=== PATIENT | female | born 1980 | race Caucasian/White ===

== ENCOUNTER 2023-12-20 18:53 | Emergency (ER) | payer OTHER, SELFPAY ==
[2023-12-20] VITALS (18 sets, daily range): BP systolic 122–170; BP diastolic 72–109; PULSE 55–97; TEMP 36.9; O2SAT 97–100; BMI 44.0
--- NOTE | 2023-12-20 19:36 | ECG_ITS ---
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
--- NOTE | 2023-12-20 19:56 | ED_ITS ---
HPI - Arrhythmia/Palpitations General Chief Complaint: Arrhythmia/Palpitations Stated Complaint: palpitations Time Seen by Provider: 12/20/23 19:50 Source: patient Mode of arrival: walk-in History of Present Illness HPI narrative: past history of RA. Takes Enbrel injections weekly. Presents complaining of palpitations over the past few days. Usually when she is laying down and during the night. Does well during the day. Asymptomatic now but wanted to come in and get checked out. No chest pain. States mild indigestion. No history of GERD. States she did have GI upset in the past when she took hydroxychloroquine. It was d/conchita after she started Enbrel. Related Data Allergies Allergy/AdvReac Type Severity Reaction Status Date / Time No Known Drug Allergies Allergy Verified 12/20/23 19:04 Review of Systems ROS Status of ROS 10 or more systems reviewed and unremark able except as noted in history and below Exam Constitutional Vital Signs, click to edit/add: Last Vital Signs Temp 98.4 F 12/20/23 18:59 Pulse 67 12/20/23 20:10 Resp 12 12/20/23 19:33 BP 134/83 12/20/23 20:06 Pulse Ox 98 12/20/23 20:10 O2 Del Method Room Air 12/20/23 18:59 Common normals: no apparent distress, average body habitus, oriented x3, no limitations, healthy appearing, alert and well nourished [facility] Common normals: normocephalic, head/scalp atraumatic and hearing grossly normal bilaterally Eye Common normals: PERRL, EOMs intact bilaterally and conjunctivae normal Respiratory Common normals: normal respiratory effort, no retractions, no use of accessory m uscles and clear to auscultation bilaterally Cardio Common normals: regular rate, regular rhythm, S1 normal heart sound and S2 normal heart sound GI Common normals: Normal to inspection, nondistended, normoactive bowel sounds present, soft to palpation and non-tender Extremity Common normals: normal to inspection and full ROM Neuro Common normals: oriented x3, CN's II-XII intact bilaterally, moves all extremities and no focal motor deficits Psych Appearance: grossly normal Course Vital Signs Vital signs: Vital Signs Temperature 98.4 F 12/20/23 18:59 Pulse Rate 78 08/03/24 18:59 Respiratory Rate 18 12/20/23 18:59 Blood Pressure 160/102 H 12/20/23 18:59 Pulse Oximetry 98 12/20/23 18:59 Oxygen Delivery Method Room Air 12/20/23 18:59 Temperature 98.4 F 12/20/23 18:59 Pulse Rate 67 12/20/23 20:10 Respiratory Rate 12 12/20/23 19:33 Blood Pressure 134/83 12/20/23 20:06 Pulse Oximetry 98 12/20/23 20:10 Oxygen Delivery Method Room Air 12/20/23 18:59 MDM - Arrhythmia/Palpitations MDM Narrative Medical decision making narrative: patient presents complaining of palpitations at night for the past 3 days. No symptoms during the day. Arrives here asymptomatic but wanted to get checked . Troponin and D-dimer neg. Cxray without acute findings. EKG with low voltage. ? old ant. wall scar. No acute findings. Monitor during time in the department without arrhythmia. Patient discharged and advised to follow up with her doctor . Recommend out patient monitor as part of her workup Lab Data Labs: Lab Results 12/20/23 Range/Units 20:03 WBC 12.1 H (4.0-11.0) 10^3/uL RBC 4.43 (4.20-5.40) 10^6/uL Hgb 14.3 (12.0-16.0) g/dL Hct 41.4 (36.0-48.0) % MCV 93.5 (81.0-99.0) fL MCH 32.3 (26.7-34.0) pg MCHC 34.5 (29.9-35.2) g/dL RDW 12.0 (11.0-15.0) % Plt Count 382 (150-450) 10^3/uL MPV 9.8 (9.5-13.5) fL Neut % (Auto) 73.2 (43.0-75.0) % Lymph % (Auto) 19.5 L (20.5-60.0) % [place] % (Auto) 5.4 (1.7-12.0) % Eos % (Auto) 0.7 L (0.9-7.0) % Baso % (Auto) 0.7 (0.2-2.0) % Neut # (Auto) 8.9 H (1.4-6.5) 10^3/uL Lymph # (Auto) 2.4 (1.2-3.8) 10^3/uL [place] # (Auto) 0.7 (0.3-0.8) 10^3/uL Eos # (Auto) 0.1 (0.0-0.7) 10^3/uL Baso # (Auto) 0.1 (0.0-0.1) 10^3/uL Abs Immat Gran (auto) 0.06 H (0.00-0.03) 10^3/uL Imm/Tot Granulo (auto) 0.5 (0.0-0.5) % D-Dimer 0.29 (<=0.59) mg/L FEU Sodium 137 (136-145) mmol/L Potassium 3.7 (3.5-5.1) mmol/L Chloride 102 (98-107) mmol/L Carbon Dioxide 26.0 (21.0-32.0) mmol/L Anion Gap 12.7 BUN 16.0 (7.0-18.0) mg/dL Creatinine 1.02 (0.55-1.02) mg/dL Est GFR ( Amer) >60 (>=60) Est GFR (Non-Af Amer) 59 L (>=60) BUN/Creatinine Ratio 15.7 Glucose 94 (74-106) mg/dL Calcium 9.2 (8.5-10.1) mg/dL Troponin I High Sens 6.0 (4.0-51.3) pg/mL Discharge Plan Discharge Stand Alone Forms: Portal Instructions Chief Complaint: Arrhythmia/Palpitations Clinical Impression: Palpitations Patient Disposition: Home, Self-Care Print Language: Arabic Instructions: Heart Palpitations (ED) Additional Instructions: call your doctor Friday for follow up appointment. Informed your doctor of your symptoms and ER recommendations for heart monitor as out patient Referrals: Physician,Non-Staff, MD [Primary Care Provider] - 1 week
--- NOTE | 2023-12-20 20:08 | XR_ITS ---
The [address] [address] Patient Name: ERNESTINA CHEN MRN: [id number] date: 1980 Sex: F Assigned Patient Location: ER Current Patient Location: Accession/Order Number: [id number] Exam Date: 12/20/2023 20:22 Report Date: 12/20/2023 22:03 At the request of: PIERO TOVAR Procedure: XR chest 2V EXAM: XR chest 2V HISTORY: palpitations COMPARISON: 08/24/2022 TECHNIQUE: Chest X-ray, 2 views FINDINGS: Support devices: None. Lungs/pleura: No consolidation, effusion, or pneumothorax. Heart and mediastinum: Normal contours. Bones: No acute abnormality identified. XR/XR chest 2V Impression: No radiographic evidence of acute cardiopulmonary process. Electronically authenticated by: BETTY LNYN Date: 12/20/2023 22:03
[2023-12-20 20:20] LABS: Basophils Absolute Auto 0.1 10^3/uL (0.0-0.1); Basophils Percent Auto 0.7 % (0.2-2.0); Eosinophils Absolute Auto 0.1 10^3/uL (0.0-0.7); Eosinophils Percent Auto 0.7 % (0.9-7.0); Hematocrit 41.4 % (36.0-48.0); Hemoglobin 14.3 g/dL (12.0-16.0); Immature Granulocytes Abs Auto 0.06 10^3/uL (0.00-0.03); Immature Granulocytes Pct Auto 0.5 % (0.0-0.5); Lymphocytes Absolute Auto 2.4 10^3/uL (1.2-3.8); Lymphocytes Percent Auto 19.5 % (20.5-60.0); Mean Corpuscular HGB Conc 34.5 g/dL (29.9-35.2); Mean Corpuscular Hemoglobin 32.3 pg (26.7-34.0); Mean Corpuscular Volume 93.5 fL (81.0-99.0); Mean Platelet Volume 9.8 fL (9.5-13.5); Monocytes Absolute Auto 0.7 10^3/uL (0.3-0.8); Monocytes Percent Auto 5.4 % (1.7-12.0); Neutrophils Absolute Auto 8.9 10^3/uL (1.4-6.5); Neutrophils Percent Auto 73.2 % (43.0-75.0); Platelet Count 382 10^3/uL (150-450); Red Blood Count 4.43 10^6/uL (4.20-5.40); White Blood Count 12.1 10^3/uL (4.0-11.0)
[2023-12-20 20:26] LABS: D Dimer 0.29 mg/L FEU (<=0.59)
[2023-12-20 20:38] LABS: Anion Gap 12.7; BUN Creatinine Ratio 15.7; Calcium 9.2 mg/dL (8.5-10.1); Chloride 102 mmol/L (98-107); Estimated GFR (African America >60 (>=60); Estimated GFR (Non-African Ame 59 (>=60); Glucose 94 mg/dL (74-106); Potassium 3.7 mmol/L (3.5-5.1); Sodium 137 mmol/L (136-145)
== END 2023-12-20 21:33 | disposition home or self-care (01) ==
PROVIDERS: Emergency Provider Internal Medicine
DX: R00.2 Palpitations (principal); M06.9 Rheumatoid arthritis, unspecified
CPT/HCPCS: 36415; 71046; 80048; 84484; 85025; 85378; 93005; 99285